=== PATIENT | male | born 1970 | race Caucasian/White ===

== ENCOUNTER → 2018-06-10 | Outpatient (CLI) | payer OTHER ==
[2018-06-10 08:57] LABS: INR 1.3 (<1.2); Prothrombin Time 11.9 sec (9.0-12.0)
== END | disposition home or self-care (01) ==
LOC: LABWHC1 08:31
PROVIDERS: ATTEND Dentist Oral and Maxillofacial Surgery
DX: D68.9 Coagulation defect, unspecified (principal)
CPT/HCPCS: 36415; 85610

== ENCOUNTER → 2021-08-13 | Outpatient (CLI) | payer OTHER ==
[2021-08-13 10:50] LABS: Prothrombin Time 10.8 sec (9.0-12.0)
== END | disposition home or self-care (01) ==
LOC: LABWHC1 09:52
PROVIDERS: ATTEND Dentist Oral and Maxillofacial Surgery
DX: Z79.01 Long term (current) use of anticoagulants (principal)
CPT/HCPCS: 36415; 85610

== ENCOUNTER → 2023-04-19 | Outpatient (CLI) | payer OTHER ==
[2023-04-19 10:32] LABS: Prothrombin Time 10.6 sec (9.0-12.0)
== END | disposition home or self-care (01) ==
LOC: LABWHC1 09:07
PROVIDERS: ATTEND Dentist Oral and Maxillofacial Surgery
DX: Z51.81 Encounter for therapeutic drug level monitoring (principal); Z79.01 Long term (current) use of anticoagulants
CPT/HCPCS: 36415; 85610